=== PATIENT | male | born 1980 | race Caucasian/White ===

== ENCOUNTER → 2018-01-13 10:35 | Outpatient (CLI) | payer OTHER, SELFPAY ==
[2018-01-13 12:11] LABS: Add Manual Diff / Slide Review NO; Basophils Percent Auto 0.2 % (0-2); Eosinophils Percent Auto 0.8 % (2-4); Hematocrit 45.2 % (41-53); Hemoglobin 15.4 g/dL (13.5-17.5); Lymphocytes Percent Auto 32.5 % (25-40); Mean Corpuscular HGB Conc 33.9 % (30-36); Mean Corpuscular Hemoglobin 30.3 PG (26-34); Mean Corpuscular Volume 89.2 fL (80-100); Monocytes Percent Auto 6.9 % (3-14); Neutrophils Absolute Auto 3900 /uL (3000-5900); Neutrophils Percent Auto 59.6 % (50-75); Platelet Count 236 X10^3/uL (150-400); Red Blood Cell Count 5.07 X10^6/uL (4.5-5.9); Red Cell Distribution Width 12.6 % (11.6-14.8); White Blood Cell Count 6.6 X10^3/uL (4.5-11.0)
[2018-01-13 12:38] LABS: Alanine Aminotransferase 45 IU/L (21-72); Albumin 4.7 g/dL (3.5-5.0); Albumin Globulin Ratio 1.5 (1.0-2.8); Alkaline Phosphatase 83 U/L (38-126); Aspartate Aminotransferase 28 IU/L (17-59); Bilirubin Total 1.3 mg/dL (0.2-1.3); Blood Urea Nitrogen 16 mg/dL (9-20); Calcium 9.7 mg/dL (8.4-10.2); Carbon Dioxide 29 mmol/L (22-32); Chloride 103 mmol/L (98-107); Cholesterol 230 mg/dL (140-199); Estimated Glomerular Filt Rate > 60.0 mL/min (>60); Globulin 3.1 g/dL (1.7-4.1); Glucose 95 mg/dL (70-100); HDL Cholesterol 46 mg/dL (40-60); HEMOLYSIS < 15 (0-50); LDL Cholesterol Calculated 164 mg/dL (<100); Potassium 4.4 mmol/L (3.4-5.1); Sodium 145 mmol/L (137-145); Total Protein 7.8 g/dL (6.3-8.2); Triglycerides 100 mg/dL (35-150)
[2018-01-13 12:39] LABS: Hemoglobin A1C% w Est Avg Glu 5.4 % (4.0-6.0)
[2018-01-13 15:11] LABS: Vitamin D 25 Hydroxy (D3) 41.9 ng/mL (30.0-100.0)
[2018-01-13 15:27] LABS: Hepatitis B Surface Antigen NEGATIVE s/c (NEGATIVE)
[2018-01-13 15:46] LABS: Hep C Virus Ab w/Reflex Quant NEGATIVE s/c (NEGATIVE)
[2018-01-13 19:41] LABS: Free T3, Triiodothyronine Free 3.43 pg/mL (2.77-5.27); Free T4, Direct Thyroxine 1.25 ng/dL (0.78-2.19)
[2018-01-13 19:55] LABS: Thyroid Stimulating Hormone 1.37 uIU/mL (0.47-4.68)
[2018-01-19 14:35] LABS: Rapid Plasma Reagin NON-REACTIVE
== END ==
PROVIDERS: PCP Physician Assistant; Visit Provider Acupuncturist
DX: F41.1 Generalized anxiety disorder (principal); K59.1 Functional diarrhea; R53.83 Other fatigue; Z00.00 Encounter for general adult medical examination without abnormal findings; Z11.3 Encounter for screening for infections with a predominantly sexual mode of transmission
CPT/HCPCS: 36415; 80053; 80061; 82306; 83036; 84439; 84443; 84481; 85025; 86592; 86664; 86665; 86803; 87340; 87389; 87529

== ENCOUNTER → 2018-07-29 15:01 | Outpatient (CLI) | payer OTHER, SELFPAY ==
--- NOTE | 2018-07-29 15:03 | DI.US.S_ITS ---
PROCEDURE: US ABDOMEN LIMITED INDICATIONS: r/o hernia left inguinal region TECHNIQUE: Real-time focused scanning was performed of the abdomen, with image documentation. COMPARISON: None. FINDINGS: No sonographic findings to suggest hernia within the left inguinal canal. Multiple normal appearing lymph nodes are noted. IMPRESSION: No sonographic findings to suggest left inguinal hernia. Dictated by: Sarah López M.D. on 07/29/2018 at 16:26 Approved by: Sarah López M.D. on 07/29/2018 at 16:27
== END ==
PROVIDERS: PCP Naturopath; Visit Provider Physician Assistant
DX: R10.30 Lower abdominal pain, unspecified (principal)
CPT/HCPCS: 76705

== ENCOUNTER → 2024-02-21 12:28 | Outpatient (CLI) | payer BC, SELFPAY ==
[2024-02-21 13:34] LABS: Alanine Aminotransferase 26 IU/L (<50); Albumin 4.6 g/dL (3.5-5.0); Albumin Globulin Ratio 1.6 (1.0-2.8); Alkaline Phosphatase 74 U/L (38-126); Aspartate Aminotransferase 27 IU/L (17-59); BUN Creatinine Ratio 17.3 (6-22); Bilirubin Total 1.2 mg/dL (0.2-1.3); Blood Urea Nitrogen 18 mg/dL (9-20); Calcium 9.5 mg/dL (8.4-10.2); Carbon Dioxide 30 mmol/L (22-32); Chloride 102 mmol/L (98-107); Estimated Glomerular Filt Rate > 60 mL/min (>60); Globulin 2.8 g/dL (1.7-4.1); Glucose 50 mg/dL (70-100); HEMOLYSIS < 15 (0-50); Potassium 3.9 mmol/L (3.4-5.1); Sodium 139 mmol/L (137-145); Total Protein 7.4 g/dL (6.3-8.2)
[2024-02-24 05:36] LABS: RPR Screen Non Reactive (Non Reactive)
== END ==
PROVIDERS: PCP Naturopath; Referring Provider Naturopath; Visit Provider Naturopath
DX: K76.0 Fatty (change of) liver, not elsewhere classified (principal); N48.5 Ulcer of penis
CPT/HCPCS: 36415; 80053; 86592

== ENCOUNTER → 2024-03-21 16:18 | Outpatient (CLI) | payer BC, SELFPAY ==
[2024-03-21 19:03] LABS: Urine N gonorrhoeae NOT DETECTED
[2024-03-21 19:09] LABS: Urine Chlamydia NOT DETECTED
== END ==
PROVIDERS: PCP Naturopath; Visit Provider Physician Assistant Surgical
DX: R10.9 Unspecified abdominal pain (principal); Z71.1 Person with feared health complaint in whom no diagnosis is made
CPT/HCPCS: 87086; 87210; 87491; 87591

== ENCOUNTER → 2024-12-14 10:31 | Outpatient (CLI) | payer BC, SELFPAY ==
[2024-12-14 10:58] LABS: Add Manual Diff / Slide Review NO; Hematocrit 43.1 % (41-53); Hemoglobin 14.3 g/dL (13.5-17.5); Lymphocytes Absolute Auto 2100 /uL (1100-4500); Mean Corpuscular HGB Conc 33.3 % (30-36); Mean Corpuscular Hemoglobin 30.1 PG (26-34); Mean Corpuscular Volume 90.5 fL (80-100); Platelet Count 198 X10^3/uL (150-400)
[2024-12-14 11:08] LABS: Hemoglobin A1C% w Est Avg Glu 5.5 % (4.0-6.0)
[2024-12-14 11:20] LABS: Alanine Aminotransferase 26 IU/L (<50); Albumin 4.4 g/dL (3.5-5.0); Albumin Globulin Ratio 1.6 (1.0-2.8); Alkaline Phosphatase 72 U/L (38-126); Blood Urea Nitrogen 20 mg/dL (9-20); Calcium 9.3 mg/dL (8.4-10.2); Carbon Dioxide 28 mmol/L (22-32); Chloride 104 mmol/L (98-107); Cholesterol 221 mg/dL (140-199); Estimated Glomerular Filt Rate > 60 mL/min (>60); Globulin 2.8 g/dL (1.7-4.1); Glucose 95 mg/dL (70-99); HDL Cholesterol 41 mg/dL (40-60); HEMOLYSIS < 15 (0-50); Potassium 4.3 mmol/L (3.4-5.1); Sodium 141 mmol/L (137-145); Total Protein 7.2 g/dL (6.3-8.2); Triglycerides 118 mg/dL (35-150)
== END ==
PROVIDERS: PCP Naturopath; Referring Provider Naturopath; Visit Provider Naturopath
DX: Z00.00 Encounter for general adult medical examination without abnormal findings (principal); E16.2 Hypoglycemia, unspecified
CPT/HCPCS: 36415; 80053; 80061; 83036; 85025